=== PATIENT | male | born 1985 | race Caucasian/White ===

== ENCOUNTER → 2018-11-28 | Emergency (ER) | payer OTHER ==
[~2018-11-28] VITALS: Ht 180.3 cm; Wt 89.4 kg
[~2018-11-28] MED LIST: IBUPROFEN200 M1; NAPROXEN500 MG
== END | disposition home or self-care (01) ==
LOC: ER 21:20
DX: S80.01XA Contusion of right knee, initial encounter (principal); W18.39XA Other fall on same level, initial encounter; Y93.89 Activity, other specified; Y92.89 Other specified places as the place of occurrence of the external cause; Y99.8 Other external cause status

== ENCOUNTER → 2019-01-11 | Emergency (ER) | payer OTHER ==
[~2019-01-11] VITALS: Ht 180.3 cm; Wt 86.2 kg
== END | disposition home or self-care (01) ==
LOC: ER 18:31 → EDBD 18:37 → ER 18:37
DX: M94.0 Chondrocostal junction syndrome [Tietze] (principal)

== ENCOUNTER 2021-03-30 08:08 | Emergency (ER) | payer OTHER ==
[~2021-03-30] VITALS: Ht 180.3 cm; Wt 86.2 kg
== END 2021-03-30 15:00 | disposition home or self-care (01) ==
LOC: ER 08:08
DX: M25.561 Pain in right knee (principal)